=== PATIENT | male | born 1950 | race Caucasian/White ===

== ENCOUNTER 2016-10-04 10:24 | Day surgery (SDC) | payer MEDICARE ==
[2016-09-29 10:43] VITALS: BMI 23.1
[~2016-10-04 10:24] MED LIST: DEXAMETHASONE SOD PHOSPHATE 10 MG/ML 1 ML VIAL IV ONE; FAMOTIDINE 20 MG/2 ML VIAL IV ONE; LACTATED RINGERS 1,000 ML IV SCH; LIDOCAINE 1% 20 ML VIAL (10MG/ML) FOR IV START INTRADERMA PRN; MIDAZOLAM 2 MG/2 ML VIAL IV PRN; ONDANSETRON 4 MG/2 ML VIAL IVP ONE; SCOPOLAMINE 1.5MG/72HR PATCH TRANSDERM ONE
[2016-10-04] MEDS ORDERED: LIDOCAINE 1% 20 ML VIAL (10MG/ML) FOR IV START INTRADERMA ONE (11:58)
[2016-10-04] MEDS ORDERED: LACTATED RINGERS 1,000 ML IV ONE ×2 (11:58→13:56)
[2016-10-04] MEDS ORDERED: MIDAZOLAM 2 MG/2 ML VIAL ONE (12:25)
[2016-10-04] MEDS ORDERED: PHENYLEPHRINE-0.9% NACL SYG 1 MG/10 ML SYRINGE ONE (12:25)
[2016-10-04] MEDS ORDERED: SUCCINYLCHOLINE CHLORIDE 100 MG/5 ML SYR IV ONE (12:25)
[2016-10-04] MEDS ORDERED: fentaNYL (PF) 50 MCG/ML 2 ML AMP ONE (12:25)
[2016-10-04] MEDS ORDERED: LIDOCAINE 1% INJ 10MG/ML (20 ML MDV) ONE (12:25)
[2016-10-04] MEDS ORDERED: PROPOFOL 10 MG/ML 20 ML VIAL IV ONE (12:25)
[2016-10-04] MEDS ORDERED: LIDOCAINE 1%-EPI 1:100,000 20 ML VIAL SQ ONE ×2 (12:53)
--- NOTE | 2016-10-04 14:03 | P.OP ---
Date of Procedure: 10/04/16 Preoperative Diagnosis: Right submandibular gland neoplasm Postoperative Diagnosis: Same Procedure(s) Performed: Excision right submandibular gland with EMG facial nerve monitoring Anesthesia: MARITAA Surgeon: Hernan Carbajal Estimated Blood Loss (ml): 5 Pathology: other (Right submandibular gland) Condition: stable Disposition: PACU Indications for Procedure: This is a 66-year-old white male who had a notable right submandibular lesion noted. Fine-needle aspiration was performed which showed some atypical cells with keratin possibly keratinaceous cyst versus a well-differentiated squamous cell carcinoma. Options reviewed and the patient has decided to proceed with submandibular gland excision Operative Findings: Normal-appearing overall size of the gland however there was a nodular lesion in the medial aspect of gland approximate 1.5 cm which appeared well encapsulated and grossly consistent with a keratinaceous cyst. This was excised grossly entirely Description of Procedure: The patient was brought in the operative suite and placed in a supine position. The patient underwent induction of general anesthesia with oral endotracheal intubation without difficulty. The patient was prepped and draped in usual aseptic fashion. EMG facial monitor was placed utilizing the probes in the orbicularis varghese for monitoring throughout the case and the monitor was working well with testing. A transverse cervical incision was made 2-1/2 fingerbreadths below the mandible and carried through skin and subcutaneous tissue and platysma layer. The inferior aspect of the submandibular gland was identified. The dissection continued medially on the inferior aspect to the digastric muscle. The posterior facial artery and vein were dissected from the posterior aspect of the gland inferiorly and doubly clamped divided and ligated and retracted superiorly including to retract the marginal mandibular branch of the facial nerve. The dissection continued on the lateral aspect of the gland directly on the capsule identifying the marginal mandibular branch of the facial nerve and reflecting this superiorly leaving this intact. Dissection then continued from the lateral aspect superiorly as well as from the inferior aspect to identify the hypoglossal nerve was left intact and ultimately to dissecting down to the submandibular duct which was doubly clamped divided and ligated as well as the lingual nerve with its efferent nerves to the gland divided after being clamped. This left the lingual nerve intact. Dissection then continued to remove the gland from the surrounding tissue. The marginal mandibular branch of the nerve stimulated well at the end of the case that 0.5 mA. There was excellent hemostasis noted. A Eddie drain was placed in the depth of the wound and brought out through the anterior aspect of the incision. The wound was copiously irrigated sterile normal saline. The wound was then closed in the platysmal layer with inverted interrupted 4-0 Vicryl suture as well as the subcutaneous and the skin closed with running locking 4-0 Prolene suture. A separate suture was placed in the drain. A light pressure dressing was then placed after bacitracin ointment placed on the incision. The patient was then allowed to emerge from general anesthesia having tolerated procedure well was recovery area in satisfactory condition.
[2016-10-04 14:11] VITALS: TEMP 97
[2016-10-04] MEDS: HYDROmorphone 1 MG/ML 1 ML SYRINGE IVP PRN ×4 (14:23→15:15)
[2016-10-04 14:25] VITALS: RESP 16
[2016-10-04 16:13] VITALS: BP 110/66; PULSE 54
== END 2016-10-04 16:44 | disposition home or self-care (01) ==
LOC: OR 10:24
PROVIDERS: ATTEND Otolaryngology
DX: D11.7 Benign neoplasm of other major salivary glands (principal); F17.200 Nicotine dependence, unspecified, uncomplicated; Z91.030 Bee allergy status
CPT/HCPCS: 88307; 42440; J2250; J1100; J2405; J2001; J3010; J1170; J2370; J0330; J2704

== ENCOUNTER → 2016-11-28 | Outpatient (CLI) | payer MEDICARE ==
[2016-11-28 10:38] LABS: Anion Gap 7 mmol/L; Blood Urea Nitrogen 12 mg/dL (9-20); Calcium 9.4 mg/dL (8.4-10.2); Carbon Dioxide 30 mmol/L (22-30); Chloride 105 mmol/L (98-107); Glucose 58 mg/dL (74-99); Non-African American GFR(MDRD) >60 (>60 ml/min/1.73 sqM); Potassium 4.3 mmol/L (3.5-5.1); Sodium 142 mmol/L (137-145)
--- NOTE | 2016-11-28 11:32 | MR ---
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 FINDINGS: The vertebral arteries are codominant. Neither posterior communicating artery is visualized . Both ophthalmic arteries are patent. No sizable aneurysm is seen. IMPRESSION: NORMAL MRA OF THE [place].
--- NOTE | 2016-11-28 11:44 | MR ---
EXAMINATION TYPE: MR brain wo/w con DATE OF EXAM: 11/28/2016 11:37 AM COMPARISON: NONE HISTORY: mass in brain, cerebral aneurysm TECHNIQUE: Multiplanar, multiecho imaging of the brain was obtained with and without intravenous adm inistration of 15 mL intravenous MultiHance. FINDINGS: Midline structures are unremarkable. There is a normal craniocervical junction. Echoplanar diffusion imaging is normal. There are normal vascular flow voids. The orbits are normal. There is no evidence of a CP angle mass lesion. There are scattered some centimeters FLAIR lesions in the deep white matter tracts of the cerebral he mispheres. These are nonspecific. There is no mass effect, midline shift or intracranial blood. Following the intravenous administration of gadolinium, I do not see evidence of abnormal enhancement . IMPRESSION: 1. NO ACUTE INTRACRANIAL ABNORMALITY. 2. SCATTERED, SUBCENTIMETER FLAIR LESIONS THROUGHOUT THE DEEP WHITE MATTER TRACTS OF THE CEREBRAL HEM ISPHERES. THESE ARE NONSPECIFIC. A DIFFERENTIAL DIAGNOSIS INCLUDES DEMYELINATION, SMALL VESSEL DISEAS E, HYPERTENSION, MIGRAINE HEADACHES AND LYME'S DISEASE.
== END | disposition home or self-care (01) ==
LOC: RADMRIMAIN 09:58
PROVIDERS: ATTEND Psychiatry & Neurology Neurology
DX: R90.82 White matter disease, unspecified (principal); G43.909 Migraine, unspecified, not intractable, without status migrainosus; I73.9 Peripheral vascular disease, unspecified; G93.89 Other specified disorders of brain; I10 Essential (primary) hypertension
CPT/HCPCS: 80048; 70544; 70553; 36415; A9577

== ENCOUNTER → 2017-01-03 | Outpatient (CLI) | payer MEDICARE | END | disposition home or self-care (01) | LOC: RADECHMAIN 11:46 | PROVIDERS: ATTEND Psychiatry & Neurology Neurology | DX: R55 Syncope and collapse (principal) | CPT/HCPCS: 93270; 93271 ==

== ENCOUNTER 2017-01-14 15:48 | Emergency (ER) | payer MEDICARE ==
[2017-01-14 16:00] VITALS: RESP 18
[2017-01-14] MEDS ORDERED: FAMOTIDINE 20 MG/2 ML VIAL IV STA (16:07)
[2017-01-14] MEDS ORDERED: diphenhydrAMINE 50 MG/ML 1 ML VIAL IVP STA (16:07)
[2017-01-14] MEDS ORDERED: methylPREDNISolone SOD SUCCI 125 MG/2 ML VIAL IV STA (16:07)
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
[2017-01-14 17:42] VITALS: BP 161/68; PULSE 71; TEMP 97.9
== END 2017-01-14 17:40 | disposition home or self-care (01) ==
LOC: EC 15:48
DX: T63.441A Toxic effect of venom of bees, accidental (unintentional), initial encounter (principal); F17.200 Nicotine dependence, unspecified, uncomplicated; Z79.899 Other long term (current) drug therapy; Z91.030 Bee allergy status
CPT/HCPCS: 99283; 96374; 96375 ×2; J1200; J2930

== ENCOUNTER 2017-01-21 20:39 | Emergency (ER) | payer MEDICARE ==
[2017-01-21] MEDS ORDERED: methylPREDNISolone SOD SUCCI 125 MG/2 ML VIAL IV STA (21:39)
[2017-01-21] MEDS ORDERED: diphenhydrAMINE 50 MG/ML 1 ML VIAL IVP STA (21:39)
[2017-01-21] MEDS ORDERED: FAMOTIDINE 20 MG/2 ML VIAL IV STA (21:40)
[2017-01-21 21:42] VITALS: PULSE 75
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
[2017-01-21 22:37] VITALS: BP 121/75; TEMP 98.9
[2017-01-21 23:20] VITALS: RESP 18
== END 2017-01-21 23:20 | disposition home or self-care (01) ==
LOC: EC 20:39
DX: T63.441A Toxic effect of venom of bees, accidental (unintentional), initial encounter (principal); M79.89 Other specified soft tissue disorders; H57.8 Other specified disorders of eye and adnexa; F17.200 Nicotine dependence, unspecified, uncomplicated; Z79.899 Other long term (current) drug therapy; Z91.030 Bee allergy status
CPT/HCPCS: 99283; 96374; 96375 ×2; J1200; J2930

== ENCOUNTER 2017-02-27 11:46 | Day surgery (SDC) | payer MEDICARE ==
[2017-02-20 09:21] VITALS: BMI 22.1
[2017-02-27 12:03] VITALS: BP 130/81; PULSE 64; RESP 14
[2017-02-27] MEDS ORDERED: SODIUM CHLORIDE 0.9% 500 ML IV ONE (12:09)
[2017-02-27] MEDS ORDERED: SODIUM CHLORIDE 0.9% 1,000 ML IV SCH (12:30)
--- NOTE | 2017-02-27 16:16 | P.PCN ---
Preoperative Diagnosis: Twelve-lead ECG Sinus mechanism normal OK narrow QRS heart rate 58 beats a minute normal QT interval no delta waves Tilt table test report Baseline blood pressure 116/72 mmHg Baseline heart rate 57 beats a minute. Patient was tilted upright at an angle of 70 per protocol there was no change in his blood pressure is a mild increase in his heart rate which reached between 85-95 beats a minute when he is laid supine his heart rate dropped back to 66 beats a minute He had no symptoms for the procedure. Impression Subtle asymptomatic orthostatic intolerance without any symptoms during this tilt table test. No syncope Postoperative Diagnosis: Procedure(s) Performed: Implants: Anesthesia: none Disposition: same day Indications for Procedure: Operative Findings: Description of Procedure:
== END 2017-02-27 13:46 | disposition home or self-care (01) ==
LOC: CATHEP 11:46 → EEVIPCON 14:30
PROVIDERS: ATTEND Internal Medicine Clinical Cardiac Electrophysiology
DX: F17.200 Nicotine dependence, unspecified, uncomplicated (principal)
CPT/HCPCS: 93005; 93660

== ENCOUNTER → 2017-12-13 | Outpatient (CLI) | payer MEDICARE ==
[2017-12-13 15:31] LABS: HCT 44.8 % (39.0-53.0); HGB 15.4 gm/dL (13.0-17.5); MCH 32.5 pg (25.0-35.0); MCHC 34.4 g/dL (31.0-37.0); MCV 94.5 fL (80.0-100.0); Mean Platelet Volume 7.6; Platelet Count 268 k/uL (150-450); RBC 4.74 m/uL (4.30-5.90); RDW 13.5 % (11.5-15.5); WBC 7.5 k/uL (3.8-10.6)
[2017-12-13 15:41] LABS: ALT 26 U/L (21-72); AST 26 U/L (17-59); Albumin 4.2 g/dL (3.5-5.0); Alkaline Phosphatase 77 U/L (38-126); Anion Gap 11 mmol/L; Blood Urea Nitrogen 17 mg/dL (9-20); Calcium 9.4 mg/dL (8.4-10.2); Carbon Dioxide 26 mmol/L (22-30); Chloride 102 mmol/L (98-107); Glucose 83 mg/dL (74-99); Potassium 4.3 mmol/L (3.5-5.1); Sodium 139 mmol/L (137-145); Total Bilirubin 0.6 mg/dL (0.2-1.3); Total Protein 6.8 g/dL (6.3-8.2)
== END | disposition home or self-care (01) ==
LOC: LABWHC1 14:34
PROVIDERS: ATTEND Internal Medicine Interventional Cardiology
DX: R07.89 Other chest pain (principal); R55 Syncope and collapse
CPT/HCPCS: 36415; 80053; 84443; 85027

== ENCOUNTER 2019-04-04 14:45 | Emergency (ER) | payer MEDICARE ==
[2019-04-04 14:52] VITALS: BP 130/92; PULSE 78; RESP 20; TEMP 97.6
[2019-04-04] MEDS ORDERED: ceFAZolin 1,000 MG VIAL (IM USE) IM STA (15:15)
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
[2019-04-04] MEDS ORDERED: CEPHALEXIN 500MG STARTER PACK 4 CAP BTL PO STA (15:52)
[2019-04-04] MEDS ORDERED: ACET/COD 300 MG/30 MG STARTER PACK 6 TAB BTL PO STA (16:21)
== END 2019-04-04 16:25 | disposition home or self-care (01) ==
LOC: EC 14:45
DX: S62.637A Displaced fracture of distal phalanx of left little finger, initial encounter for closed fracture (principal); S61.217A Laceration without foreign body of left little finger without damage to nail, initial encounter; F17.200 Nicotine dependence, unspecified, uncomplicated; Z91.030 Bee allergy status; Z79.82 Long term (current) use of aspirin; W22.8XXA Striking against or struck by other objects, initial encounter; Y92.009 Unspecified place in unspecified non-institutional (private) residence as the place of occurrence of the external cause
CPT/HCPCS: 96372; 99283; J0690